=== PATIENT | male | born 1960 | race Hispanic/Latino ===

== ENCOUNTER 2022-07-13 05:36 | Emergency (ER) | payer BC, OTHER, SELFPAY ==
[2022-07-13] MEDS ORDERED: Dexamethasone 4 MG TAB ONE (06:25)
[2022-07-13 07:10] LABS: SARS-CoV-2 NAA Rapid Test Not Detected (NotDetected)
== END 2022-07-13 06:37 | disposition home or self-care (01) ==
LOC: CSHERS 05:36
DX: B34.9 Viral infection, unspecified (principal); F17.210 Nicotine dependence, cigarettes, uncomplicated; Z20.822 Contact with and (suspected) exposure to COVID-19
CPT/HCPCS: 99283; J8540